=== PATIENT | female | born 1980 | race African-American/Black ===

== ENCOUNTER 2019-03-29 11:14 | Emergency (ER) | payer OTHER ==
[2019-03-29] MEDS ORDERED: ONDANSETRON 4 MG TAB.RAPDIS PO ONE (12:33)
--- NOTE | 2019-03-29 12:39 | ER Document Report ---
ED Medical Screen (RME) - General Chief Complaint: Nausea/Vomiting/Diarrhea Stated Complaint: VOMITING Time Seen by Provider: 03/29/19 12:17 Mode of Arrival: Ambulatory Information source: Patient Notes: HPI: 39 Yr old female patient, with the listed pmh, here for bilat lower abdominal pain intermittently for months, worse over the last 2 days. No abdominal surgeries other than 2 remote c-sections. a few episodes of vomiting. prior hx of miscarriage and ov cyst. also has vag dc and dyspareunia. No history of fibroids, endometriosis, or renal stones. Normal bowel movements. No UTI symptoms. No URI symptoms. No recent antibiotics or steroids. No history of diabetes or asthma. No concerns for STDs. No ripping or tearing sensation. Hasn't taken anything for her symptoms other than drinking lemon juice and vinegar juice as a "home remedy". No excessive NSAID use, Tylenol use, or EtOH. No prior history of gallbladder disease, pancreatitis, ulcers, GI bleed, IBS, Crohn's, or UC. no change in color or caliber or stool. no blood thinners. no fall or trauma. no other associated sx. ROS neg to include 10 systems, unless mentioned in the hpi. PE:>>>> PHYSICAL_EXAM: GENERAL_APPEARANCE: well_nourished, alert, cooperative, no_acute_distress, no_obvious_discomfort. pleasant, obese middle aged black female, smiling, speaking in full sentences, in no sign of pain or resp distress, VITALS: reviewed, see vital signs table. HEAD: no_swelling\\tenderness on the head. normocephalic. atraumatic. no august signs. no raccoons eyes. EYES: PERRL, EOMI, conjunctiva_clear. NOSE: no_nasal_discharge. MOUTH: (-)decreased moisture. THROAT: no_tonsilar_inflammation, no_airway_obstruction. no_lymphadenopathy NECK: supple, no_neck_tenderness, full rom. full strength. BACK: no_back_tenderness. CHEST_WALL: no_chest_tenderness. no overlying skin changes LUNGS: no_wheezing, ctab (-)accessory muscle use, good air exchange bilateral. HEART: normal_rate, normal_rhythm, ABDOMEN: normal_BS, soft, mild ttp in the LLQ and RLQ. > in the LLQ, (- )guarding, (-)rebound, no distension or peritoneal signs. no cva ttp EXTREMITIES: strength 5/5 in all_extremities, good pulses in all_extremities, no_swelling\\tenderness in the extremities, no_edema. full rom. normal gait. good pulses. brisk cap refill. 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 NEURO: motor and sensation intact, SKIN: warm, dry, good_color, no_rash. MENTAL_STATUS: speech_clear, oriented_X_3, normal_affect, responds_appropriately to questions. MDM: I have ordered labs and initial work-up and patient will be transferred to the main ER for further work-up. I have greeted and performed a rapid initial assessment of this patient. A comprehensive ED assessment and evaluation of the patient, analysis of test re sults and completion of medical decision making process will be conducted by an additional ED providers. Documentation achieved through voice recording which my lead to some occasional accidental typographical errors. Extensive efforts have been made to proof read documentation to make sure these are the least as possible Temp Pulse Resp BP Pulse Ox 03/29/19 11:37 98.6 F 69 18 122/72 100 Category Date Time Status Pelvic Setup (ED) NOW Care 03/29/19 12:31 Ordered TRANSVAGINAL [U/S NON OB PEL TV W/DOPPLER] [US] Stat Exams 03/29/19 12:32 Ordered CBC WITH DIFF [HEME] Stat Lab 03/29/19 12:23 Ordered [facility] PCR ENDO INHOUSE [MO] Stat Lab 03/29/19 12:32 Uncollected COMPREHENSIVE METABOLIC PANEL [CHEM] Stat Lab 03/29/19 12:23 Ordered HCG QUALITATIVE, URINE [URIN] Stat Lab 03/29/19 12:23 Uncollected LIPASE [CHEM] Stat Lab 03/29/19 12:23 Ordered URINALYSIS [URIN] Stat Lab 03/29/19 12:23 Uncollected WET MOUNT [MO] Stat Lab 03/29/19 12:32 Uncollected Ondansetron [Zofran Odt 4 mg Tablet] Med 03/29/19 12:33 Once 4 mg PO NOW ONE TRAVEL OUTSIDE OF THE [place] IN LAST 30 DAYS: No - Related Data Allergies/Adverse Reactions: latex Allergy (Verified 03/29/19 11:15) Past Medical History - Social History Frequency of alcohol use: None Drug Abuse: None Renal/ Medical History: Denies: Hx Peritoneal Dialysis Psychiatric Medical History: Reports: Hx Anxiety Past Surgical History: Reports: Hx Section - x2, Hx Oral Surgery - Immunizations Immunizations up to date: Yes Hx Diphtheria, Pertussis, Tetanus Vaccination: Yes Physical Exam - Vital signs Vitals: Temp Pulse Resp BP Pulse Ox 98.6 F 69 18 122/72 100 03/29/19 11:37 03/29/19 11:37 03/29/19 11:37 03/29/19 11:37 03/29/19 11:37 Course - Vital Signs Vital signs: Temp Pulse Resp BP Pulse Ox 98.6 F 69 18 122/72 100 03/29/19 11:37 03/29/19 11:37 03/29/19 11:37 03/29/19 11:37 03/29/19 11:37
[2019-03-29 13:16] LABS: ABSOLUTE EOSINOPHILS # (AUTO) 0.1 10^3/uL (0.0-0.6); ABSOLUTE MONOCYTES (AUTO) 0.4 10^3/uL (0.1-1.4); ABSOLUTE NEUT (AUTO) 2.5 10^3/uL (1.7-8.2); BASOPHILS % (AUTO) 0.7 % (0-2); EOSINOPHILS % (AUTO) 1.5 % (0-6); HEMATOCRIT 34.8 % (36.0-47.0); HEMOGLOBIN 11.1 g/dL (12.0-15.5); LYMPHOCYTES % (AUTO) 40.5 % (13-45); MEAN CORPUSCULAR HEMOGLOBIN 25.1 pg (27.0-33.4); MEAN CORPUSCULAR HGB CONC 31.8 g/dL (32.0-36.0); MEAN CORPUSCULAR VOLUME 79 fl (80-97); MONOCYTES % (AUTO) 8.1 % (3-13); PLATELET COUNT 236 10^3/uL (150-450); RED CELL DISTRIBUTION WIDTH 17.3 % (11.5-14.0); SEGMENTED NEUTROPHILS % (AUTO) 49.2 % (42-78); TOTAL CELLS COUNTED % (AUTO) 100 %
[2019-03-29 13:19] LABS: APPEARANCE,URINE CLEAR; BILIRUBIN,URINE NEGATIVE (NEGATIVE); COLOR,URINE COLORLESS; GLUCOSE, URINE NEGATIVE (NEGATIVE); KETONES,URINE NEGATIVE (NEGATIVE); LEUKOCYTE ESTERASE,URINE NEGATIVE (NEGATIVE); NITRITE,URINE NEGATIVE (NEGATIVE); PROTEIN,URINE NEGATIVE (NEGATIVE); URINE SPECIFIC GRAVITY 1.001; UROBILINOGEN,URINE NEGATIVE mg/dL (<2.0)
[2019-03-29 13:35] LABS: ALBUMIN 4.6 g/dL (3.5-5.0); ALKALINE PHOSPHATASE 66 U/L (38-126); ANION GAP 10 (5-19); ASPARTATE AMINO TRANSFERASE 22 U/L (14-36); BILIRUBIN,DIRECT 0.2 mg/dL (0.0-0.4); BILIRUBIN,TOTAL 0.3 mg/dL (0.2-1.3); BLOOD UREA NITROGEN 9 mg/dL (7-20); CALCIUM 9.2 mg/dL (8.4-10.2); CARBON DIOXIDE 26 mmol/L (22-30); CHLORIDE 104 mmol/L (98-107); GLUCOSE 89 mg/dL (75-110); POTASSIUM 4.1 mmol/L (3.6-5.0); TOTAL PROTEIN 8.2 g/dL (6.3-8.2)
--- NOTE | 2019-03-29 14:37 | RADIOLOGY REPORT (SQ) ---
EXAM DESCRIPTION: U/S NON OB PEL TV W/DOPPLER COMPLETED DATE/TIME: 03/29/2019 1:27 pm REASON FOR STUDY: llq and rlq abd pain/ r/o cyst/torsion COMPARISON: None. TECHNIQUE: Dynamic and static grayscale images acquired of the pelvis via transvaginal approach and recorded on PACS. Additional selected color Doppler and spectral images recorded. LIMITATIONS: None. FINDINGS: UTERUS: Contour normal. No mass. ENDOMETRIAL STRIPE: No focal or generalized thickening. No masses. CERVIX: No nabothian cysts. RIGHT OVARY AND DOPPLER: Normal size. No worrisome masses. Normal arterial vascular flow without evid ence for torsion. LEFT OVARY AND DOPPLER: Ovary not visualized. FREE FLUID: None noted. OTHER: No other significant finding. MEASUREMENTS: UTERUS: 11.0 x 6.4 x 5.5 cm. ENDOMETRIAL STRIPE: 11.0 mm. RIGHT OVARY: 2.8 x 2.6 x 2.8 cm. LEFT OVARY: Not visualized. IMPRESSION: Nonvisualization of the left ovary. The right ovary is normal in appearance. TECHNICAL DOCUMENTATION: JOB ID: [id number] All Rights Reserved Rev-01/01 Reading location - IP/workstation name: [email or web address]
--- NOTE | 2019-03-29 15:31 | ER Document Report ---
ED GI/ - General Chief Complaint: Nausea/Vomiting/Diarrhea Stated Complaint: VOMITING Time Seen by Provider: 03/29/19 12:17 Primary Care Provider: [facility] [Primary Care Provider] - Follow up as needed Mode of Arrival: Ambulatory Information source: Patient Notes: 39-year-old female presented to ED for complaint of bilateral lower abdominal pain nausea and vomiting with no diarrhea. She states she has been having this pain intermittently for at least a couple months and is been worse for the last couple days. She states she has had 2 C-sections with a history history of fibroid uterus endometriosis and renal stones. She states she does not have any urinary symptoms. Patient was alert oriented respirations regular and unlabored speaking in full sentences. TRAVEL OUTSIDE OF THE [place] IN LAST 30 DAYS: No - HPI Patient complains to provider of: Abdominal pain, Vomiting Onset: Other - Couple months worse last couple days Timing/Duration: Persistent Quality of pain: Cramping, Sharp Severity at maximum: Moderate Severity in ED: Mild Pain Level: 2 Location: LLQ, RLQ, Suprapubic, Pelvis Vaginal bleeding (Compared to normal period): None Associated symptoms: Nausea, Vomiting Exacerbated by: Movement, Walking Relieved by: Denies Similar symptoms previously: Yes Recently seen / treated by doctor: No - Related Data Allergies/Adverse Reactions: latex Allergy (Verified 03/29/19 11:15) Past Medical History - General Information source: Patient - Social History Smoking Status: Never Smoker Frequency of alcohol use: None Drug Abuse: None 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 Lives with: Family Family History: Reviewed & Not Pertinent Patient has suicidal ideation: No Patient has homicidal ideation: No - Past Medical History Cardiac Medical History: Reports: None Pulmonary Medical History: Reports: None EENT Medical History: Reports: None Neurological Medical History: Reports: None Endocrine Medical History: Reports: None Renal/ Medical History: Reports: Other - Uterine fibroids endometriosis Malignancy Medical History: Reports: None GI Medical History: Reports: None Musculoskeletal Medical History: Reports None Skin Medical History: Reports None Psychiatric Medical History: Reports: Hx Anxiety Traumatic Medical History: Reports: None Infectious Medical History: Reports: None Past Surgical History: Reports: Hx Section - x2, Hx Oral Surgery - Immunizations Immunizations up to date: Yes Hx Diphtheria, Pertussis, Tetanus Vaccination: Yes Review of Systems - Review of Systems Constitutional: No symptoms reported EENT: No symptoms reported Cardiovascular: No symptoms reported Respiratory: No symptoms reported Gastrointestinal: Abdominal pain, Nausea, Vomiting Female Genitourinary: Vaginal discharge, Vaginal odor, Other - Pelvic pain Musculoskeletal: No symptoms reported Skin: No symptoms reported Hematologic/Lymphatic: No symptoms reported Neurological/Psychological: No symptoms reported -: Yes All other systems reviewed and negative Physical Exam - Vital signs Vitals: Temp Pulse Resp BP Pulse Ox 98.6 F 69 18 122/72 100 03/29/19 11:37 03/29/19 11:37 03/29/19 11:37 03/29/19 11:37 03/29/19 11:37 Interpretation: Normal - General General appearance: Appears well, Alert - HEENT Head: Normocephalic, Atraumatic Eyes: Normal Pupils: PERRL - Respiratory Respiratory status: No respiratory distress Chest status: Nontender Breath sounds: Normal Chest palpation: Normal - Cardiovascular Rhythm: Regular Heart sounds: Normal auscultation Murmur: No - Abdominal Inspection: Normal Distension: No distension Bowel sounds: Normal Tenderness: Tender Organomegaly: No organomegaly - Genitourinary External exam: Normal Speculum exam: Vaginal discharge Vaginal bleeding: None Bimanuel exam: Normal - Back Back: Normal, Nontender - Extremities General upper extremity: Normal inspection, Nontender, Normal color, Normal ROM, Normal temperature General lower extremity: Normal inspection, Nontender, Normal color, Normal ROM, Normal temperature, Normal weight bearing. No: Brigitte's sign - Neurological Neuro grossly intact: Yes Cognition: Normal Orientation: AAOx4 [place] Coma Scale Eye Opening: Spontaneous Ean Coma Scale Verbal: Oriented [place] Coma Scale Motor: Obeys Commands [place] Coma Scale Total: 15 Speech: Normal Motor strength normal: LUE, RUE, LLE, RLE Sensory: Normal - Psychological Associated symptoms: Normal affect, Normal mood - Skin Skin Temperature: Warm Skin Moisture: Dry Skin Color: Normal Course - Re-evaluation Re-evalutation: 03/30/19 02:22 Labs and ultrasound were discussed with patient and written reports of labs and ultrasound given to patient before discharge. She was instructed to follow-up with her primary care doctor. She was treated with Flagyl for bacterial vaginosis and given a prescription for Flagyl. She was instructed to call the emergency room for results of her GC and chlamydia. These were negative. - Vital Signs Vital signs: Temp Pulse Resp BP Pulse Ox 98.1 F 77 18 117/72 100 03/29/19 16:16 03/29/19 16:16 03/29/19 11:37 03/29/19 16:16 03/29/19 16:16 - Laboratory Result Diagrams: 03/29/19 12:45 03/29/19 12:45 Laboratory results interpreted by me: 03/29/19 12:45 Hgb 11.1 L Hct 34.8 L MCV 79 L MCH 25.1 L MCHC 31.8 L RDW 17.3 H - Diagnostic Test Radiology reviewed: Image reviewed, Reports reviewed Discharge - Discharge Clinical Impression: Bacterial vaginal infection, Nausea vomiting and diarrhea Condition: Stable Disposition: HOME, SELF-CARE Additional Instructions: VAGINOSIS, BACTERIAL: Your exam shows you have bacterial vaginosis. This condition is due to an overgrowth of bacteria in the vagina. Symptoms may include vaginal itching or pain, a smelly discharge, and sometimes burning with urination. Normally this is not transmitted by sexual contact. Vaginosis can be treated with oral or topical antibiotics. Metronidazole (Flagyl) pills are usually effective. Topical vaginal creams include Cleocin and Metro-Gel. You should avoid sexual contact until your symptoms are all better. Call the doctor if you develop pelvic pain, fever, or problems with urination, or if you don't improve as expected. VOMITING: Vomiting (or nausea without vomiting) can be caused by many other different problems. It can mean that something's wrong with the stomach, such as ulcers or inflammation or the intestinal tract, such as appendicitis. But it can also be a symptom of a problem that has nothing to do with the stomach or intestines. Vomiting is common with severe headaches, earaches, tonsillitis, and kidney infections, etc. We see it with pneumonia or heart attacks. Drugs can cause nausea and vomiting. Many abdominal problems cause vomiting; for example, gallstones, kidney stones, pancreatitis, and intestinal obstruction (blocked bowels). In most cases, curing the vomiting depends on fixing the problem that caused it. For temporary relief, we may use an anti-nausea medicine. For home use, we can prescribe suppositories, chewable pills, pills that dissolve in the mouth, or liquid anti-nausea drugs. If the vomiting seems to be caused by a problem in the stomach, acid-suppressing drugs may be prescribed as well. It's important to avoid dehydration. Sip small amounts of clear liquids (soft drinks, tea, broth, etc) . Try to take fluids frequently even if you are vomiting to prevent dehydration. Take increasing amounts of fluid and when liquids are being consumed successfully, advance to small amounts of bland food (toast, soups, mashed potatoes, etc.) until you are able to resume a regular diet. Avoid aspirin, tobacco, and alcohol. If the vomiting worsens, if the problem that's making you vomit worsens, or if there's evidence of bleeding in the stomach (such as black, tarry stool, or bloody or black vomit), you should return immediately. Also, return if abdominal pain worsens or becomes localized to one area or you develop high fever. Call your doctor if you aren't improved in 24 hours. DIARRHEA, NON-SPECIFIC: Diarrhea means frequent, watery stools. There are many causes. Any problem that keeps the intestinal tract from absorbing water from the stool can lead to diarrhea. A sudden new diarrhea problem is usually caused by a virus, food sensitivity, toxic bacteria, or drugs. In this case, we expect the problem to go away soon. Testing is done only if you seem seriously ill from the diarrhea. If you have chronic diarrhea, or diarrhea that keeps coming back, we need to find out why. Chronic diarrhea can be due to inflammation of the bowels such as Crohn's disease or ulcerative colitis, food sensitivity such as intolerance to lactose or wheat protein, irritable bowel syndrome, and other problems. If your diarrhea is a significant problem but it's not clear why you have it, we'll refer you to a specialist for further testing. During an episode of diarrhea, drink small amounts (two to six ounces) of clear liquids (soft drinks, sport drinks, herb teas, broth, etc). Take fluids frequently to prevent dehydration. It's usually not a problem to take mild anti- diarrhea medication such as Kaopectate or Pepto-Bismol. As the diarrhea eases, advance to small amounts of bland food (mashed potato, toast) for 24 hours. Call the physician if blood appears in your vomit or stool, if vomiting lasts longer than 24 hours, if the abdominal pain worsens or becomes localized to one area, if you develop high fever, or if you become lightheaded and weak. VIRAL SYNDROME: The physician has diagnosed a viral infection. Viruses not only cause "colds," but can cause many different symptoms including generalized aching, fever, headache, cough, diarrhea, nausea, vomiting, and fatigue. The treatment, for the most part, is simply relief of symptoms. This means that antibiotics are usually not given. Rest, fluids, pain medications and, occasionally, medication for the specific symptoms that are most bothersome will be prescribed. Use good handwashing to avoid passing the virus to others. Shared toys should be cleaned with disinfectant. Clean the toilets, sinks, and counter surfaces in bathrooms. Launder clothing in hot water. Contact the physician if you develop any new or unusual symptoms such as severe headache, stiff neck, high fever, chest pain, productive cough, or shortness of breath. You should be rechecked if you don't see marked improvement within seven to 10 days. ANTINAUSEA MEDICATION: You have been given a medication to suppress nausea and vomiting. This type of medication can be given as a shot, pill, or suppository. It will usually last for many hours. Pills and shots usually last six to eight hours. For the typical illness, only one or two doses of the medication may be necessary. Mild lightheadedness may occur. This type of medicine can cause drowsiness. Do not drive or operate dangerous machinery while under its influence. Do not mix with alcohol. See your doctor at once if you have muscle spasms or tightness, or uncontrollable motions (particularly of the neck, mouth, or jaw). Persistent vomiting or severe lightheadedness should also be evaluated by the physician. METRONIDAZOLE: Metronidazole (Flagyl) has been prescribed. This medication is used to kill a type of bacteria called anaerobes, and protozoan parasites such as trichomonas and Giardia. Flagyl often causes a metallic taste in the mouth and mild nausea. Do not use alcohol in any form with Flagyl (including alcohol in medication elixirs). Flagyl interacts with alcohol to cause flushing, palpitations, headache, stomach cramps, and vomiting. Do not use Flagyl if you are taking Antabuse (disulfiram). Call the doctor at once if you develop rash, shortness of breath, itching, or lightheadedness. FOLLOW-UP CARE: If you have been referred to a physician for follow-up care, call the physicians office for an appointment as you were instructed or within the next two days. If you experience worsening or a significant change in your symptoms, notify the physician immediately or return to the Emergency Department at any time for re-evaluation. Prescriptions: Metronidazole [Flagyl 500 mg Tablet] 500 mg PO BID #14 tablet Ondansetron [Zofran Odt 4 mg Tablet] 1 tab PO Q6H #15 tab.rapdis Referrals: [facility] [Primary Care Provider] - Follow up as needed
[2019-03-29 15:51] LABS: BACTERIA (WET MOUNT) 3+ BACTERIA SEEN; EPITHELIALS (WET MOUNT) 3+ EPITHELIALS SEEN; T.VAGINALIS (WET MOUNT) NO TRICHOMONAS SEEN; WBCS (WET MOUNT) RARE WBCS SEEN; YEAST (WET MOUNT) NO YEAST SEEN
[2019-03-29] MEDS ORDERED: METRONIDAZOLE 500 MG TABLET PO ONE (16:11)
[2019-03-29 16:23] VITALS: BP 117/72
[2019-03-29 17:18] LABS: CHLAM PCR NOT DETECTED (NOT DETECT)
== END 2019-03-29 16:23 | disposition home or self-care (01) ==
LOC: ER 11:14
DX: N76.0 Acute vaginitis (principal); B96.89 Other specified bacterial agents as the cause of diseases classified elsewhere; R11.2 Nausea with vomiting, unspecified; R10.31 Right lower quadrant pain; R10.32 Left lower quadrant pain; R10.2 Pelvic and perineal pain; Z87.442 Personal history of urinary calculi; Z87.42 Personal history of other diseases of the female genital tract; Z91.040 Latex allergy status
CPT/HCPCS: 99284; 36415; 87210; 83690; 85025; 81025; 80053; 81001; 87491; 87591; 76830; 93976; S0119

== ENCOUNTER 2019-08-23 22:15 | Emergency (ER) | payer OTHER ==
[2019-08-23 23:18] LABS: APPEARANCE,URINE CLEAR; BILIRUBIN,URINE NEGATIVE (NEGATIVE); COLOR,URINE STRAW; GLUCOSE, URINE NEGATIVE (NEGATIVE); KETONES,URINE NEGATIVE (NEGATIVE); LEUKOCYTE ESTERASE,URINE NEGATIVE (NEGATIVE); NITRITE,URINE NEGATIVE (NEGATIVE); PROTEIN,URINE NEGATIVE (NEGATIVE); URINE SPECIFIC GRAVITY 1.009; UROBILINOGEN,URINE NEGATIVE mg/dL (<2.0)
--- NOTE | 2019-08-24 00:39 | ER Document Report ---
ED GI/ - General Chief Complaint: Vaginal Bleeding Stated Complaint: CRAMPS/VAGINAL BLEEDING Time Seen by Provider: 08/24/19 00:20 Primary Care Provider: NEMO VELAZQUEZ [Primary Care Provider] - Follow up as needed Notes: Patient is a 39-year-old female that comes emergency department for chief complaint of positive home test, left lower abdominal cramping, vaginal spotting for the past 2 days. She is G4, P2 at uncertain gestation with last menstrual cycle around a month or so ago. She denies current pain, heavy bleeding, dizziness, fever, vomiting, dysuria, vaginal discharge. She denies any daily medications currently, she stopped these when she found out she was , normally on anxiety/depression medications. TRAVEL OUTSIDE OF THE [place] IN LAST 30 DAYS: No - Related Data Allergies/Adverse Reactions: latex Allergy (Verified 03/29/19 11:15) Past Medical History - General Information source: Patient - Social History Smoking Status: Never Smoker Frequency of alcohol use: None Drug Abuse: None Lives with: Family Family History: Reviewed & Not Pertinent Patient has suicidal ideation: No Patient has homicidal ideation: No Renal/ Medical History: Denies: Hx Peritoneal Dialysis Psychiatric Medical History: Reports: Hx Anxiety Past Surgical History: Reports: Hx Section - x2, Hx Oral Surgery - Immunizations Immunizations up to date: Yes Hx Diphtheria, Pertussis, Tetanus Vaccination: Yes Review of Systems - Review of Systems Constitutional: No symptoms reported EENT: No symptoms reported Cardiovascular: No symptoms reported Respiratory: No symptoms reported Gastrointestinal: No symptoms reported Genitourinary: See HPI Female Genitourinary: See HPI Musculoskeletal: No symptoms reported Skin: No symptoms reported Hematologic/Lymphatic: No symptoms reported Neurological/Psychological: No symptoms reported Physical Exam - Vital signs Vitals: Temp Pulse Resp BP Pulse Ox 98.2 F 93 16 140/64 H 100 08/23/19 22:19 08/23/19 22:19 08/23/19 22:19 08/23/19 22:19 08/23/19 22:19 - Notes Notes: GENERAL: Alert, interacts well. No acute distress. HEAD: Normocephalic, atraumatic. EYES: Pupils equal, round, and reactive to light. Extraocular movements intact. ENT: Oral mucosa moist, tongue midline. Oropharynx unremarkable. Airway patent. LUNGS: Clear to auscultation bilaterally, no wheezes, rales, or rhonchi. No respiratory distress. HEART: Regular rate and rhythm. No murmur ABDOMEN: Minimal tenderness in the left lower quadrant, no guarding, almost not even reproducible. Bowel sounds present. Abdomen completely nontender otherwise. GENITOURINARY: Deferred EXTREMITIES: Moves all 4 extremities spontaneously. No edema, normal radial and dorsalis pedis pulses bilaterally. No cyanosis. BACK: no cervical, thoracic, lumbar midline tenderness. No saddle anesthesia, normal distal neurovascular exam. Moves all extremities in full range of motion. NEUROLOGICAL: Alert and oriented x3. Normal speech. Cranial nerves II through XII grossly intact. PSYCH: Normal affect, normal mood. SKIN: Warm, dry, normal turgor. No rashes or lesions noted. Course - Re-evaluation Re-evalutation: Patient with soft benign abdomen except for very mild left lower abdominal tenderness. No guarding. Unremarkable vital signs. Remaining physical exam is unremarkable. CBC and urinalysis unremarkable. hCG elevated appropriately. RhoGam is not indicated. Ultrasound shows living intrauterine , I had to call and ask about the heartbeat and they provided me with the information. No acute findings are noted. On reevaluation patient is asymptomatic. Discussed findings with patient. Provided with copy of results, patient states that she has a close appointment for follow-up with [facility] are established. Discussed return precautions. Patient and significant other state appreciation and agreement. - Vital Signs Vital signs: Temp Pulse Resp BP Pulse Ox 98.0 F 77 18 126/68 H 99 08/24/19 02:57 08/24/19 02:57 08/24/19 02:57 08/24/19 02:57 08/24/19 02:57 - Laboratory Result Diagrams: 08/24/19 01:22 Laboratory results interpreted by me: 08/23/19 08/24/19 08/24/19 22:59 01:22 01:22 Hgb 11.0 L Hct 34.2 L MCH 25.8 L RDW 19.5 H Beta HCG, Quant 07979.00 H Urine Blood MODERATE H Discharge - Discharge Clinical Impression: Vaginal bleeding affecting early , Abdominal cramping affecting Condition: Stable Disposition: HOME, SELF-CARE Additional Instructions: There is a in the uterus seen at 7 weeks and 2 days with cardiac rate of 163. No concerning findings are seen. Your work-up is not showing any concerning findings at this time. I recommend pelvic rest, avoid intense exercise, lifting, sexual intercourse, etc. for the next several days and until cleared by [facility]. Follow-up close with [facility]. Take Tylenol if needed for pain. Return for any concerning symptoms including severe pain, heavy bleeding, dizziness, passing out, fever, or any other concerning symptoms. Forms: Return to Work Referrals: [facility] [Primary Care Provider] - Follow up as needed
--- NOTE | 2019-08-24 01:31 | RADIOLOGY REPORT (SQ) ---
EXAM DESCRIPTION: [facility]: US TRANSVAGINAL CLINICAL HISTORY: 39 years Female; left pelvic pain, bleeding, +HCG TECHNIQUE: Endovaginal pelvic ultrasound was performed. COMPARISON: 03/29/2019 FINDINGS: Uterus: 10.2 x 6.6 x 6.2 cm. Single intrauterine gestational sacs identified Yolk sac 4 mm pole is identified, EGA 7 weeks 2 days No adjacent hematoma Right ovary: Not visualized. Left ovary: Not visualized. Cervix 2.9 cm, closed. There is a small amount of fluid in the cul-de-sac. IMPRESSION: 1. Single viable IUP, EGA 7 weeks 2 days, SHERRI 04/09/2020 2. No acute findings 3. Ovaries not visualized
[2019-08-24 01:33] LABS: ABSOLUTE EOSINOPHILS # (AUTO) 0.1 10^3/uL (0.0-0.6); ABSOLUTE LYMPHOCYTES (AUTO) 2.2 10^3/uL (0.5-4.7); ABSOLUTE MONOCYTES (AUTO) 0.5 10^3/uL (0.1-1.4); ABSOLUTE NEUT (AUTO) 3.4 10^3/uL (1.7-8.2); BASOPHILS % (AUTO) 0.4 % (0-2); EOSINOPHILS % (AUTO) 1.2 % (0-6); HEMATOCRIT 34.2 % (36.0-47.0); LYMPHOCYTES % (AUTO) 35.5 % (13-45); MEAN CORPUSCULAR HEMOGLOBIN 25.8 pg (27.0-33.4); MEAN CORPUSCULAR HGB CONC 32.3 g/dL (32.0-36.0); MEAN CORPUSCULAR VOLUME 80 fl (80-97); MONOCYTES % (AUTO) 8.7 % (3-13); PLATELET COUNT 233 10^3/uL (150-450); RED BLOOD COUNT 4.28 10^6/uL (3.72-5.28); RED CELL DISTRIBUTION WIDTH 19.5 % (11.5-14.0); SEGMENTED NEUTROPHILS % (AUTO) 54.2 % (42-78); TOTAL CELLS COUNTED % (AUTO) 100 %; WHITE BLOOD COUNT 6.2 10^3/uL (4.0-10.5)
[2019-08-24 02:59] VITALS: BP 126/68
== END 2019-08-24 02:59 | disposition home or self-care (01) ==
LOC: ER 22:15
DX: O20.9 Hemorrhage in early pregnancy, unspecified (principal); O26.899 Other specified pregnancy related conditions, unspecified trimester; R10.30 Lower abdominal pain, unspecified; R10.814 Left lower quadrant abdominal tenderness; Z3A.00 Weeks of gestation of pregnancy not specified; Z91.040 Latex allergy status
CPT/HCPCS: 36415; 76817; 81001; 84702; 85025; 86900; 86901; 93976; 99284

== ENCOUNTER 2020-04-05 12:46 | Outpatient (CLI) | payer OTHER ==
[2020-04-05 13:38] LABS: APPEARANCE,URINE SLIGHTLY-CLOUDY; BILIRUBIN,URINE NEGATIVE (NEGATIVE); COLOR,URINE STRAW; GLUCOSE, URINE NEGATIVE (NEGATIVE); KETONES,URINE TRACE mg/dL (NEGATIVE); LEUKOCYTE ESTERASE,URINE NEGATIVE (NEGATIVE); NITRITE,URINE NEGATIVE (NEGATIVE); PROTEIN,URINE NEGATIVE (NEGATIVE); URINE SPECIFIC GRAVITY 1.005; UROBILINOGEN,URINE NEGATIVE mg/dL (<2.0)
[2020-04-05 13:59] LABS: URINE AMPHETAMINES SCREEN NEGATIVE; URINE BARBITURATES SCREEN NEGATIVE; URINE BENZODIAZEPINES SCREEN NEGATIVE; URINE COCAINE SCREEN NEGATIVE; URINE MARIJUANA (THC) SCREEN NEGATIVE; URINE METHADONE SCREEN NEGATIVE; URINE PHENCYCLIDINE SCREEN NEGATIVE
--- NOTE | 2020-04-05 14:32 | Non Stress Test Report ---
Non Stress Test Datetime Report Generated by CPN: 04/05/2020 14:31 DEMOGRAPHIC EGA NST: 39.2 INDICATION Indication for Study (NST) Other: IUP at 39.2; False labor VITAL SIGNS Temperature - NST: 97.6 Pulse - NST: 82 RESP - NST: 20 NBPSYS NST: 104 NBPDIA NST: 54 MONITORING Monitor Explained: Monitor Explained; Test Explained; Patient Verbalized Understanding Time on Monitor: 04/05/2020 12:56 Time off Monitor: 04/05/2020 13:43 NST Duration: 47 NST INTERVENTIONS NST Interventions: PO Hydration Physician Notified NST: P. Eddy, CNM BABY A: [id number] BABY A Movement : Present Contraction Frequency : Irreg FHR Baseline : 125 Accelerations : 15X15 Decelerations : None Variability : Moderate 6-25bpm NST Review: Meets Criteria for Reactive NST NST Review and Verified By : Meme Mcbride RNC NST Results: Reactive NST REPORT Report Trigger: Send Report
== END 2020-04-05 13:59 | disposition home or self-care (01) ==
LOC: LC 12:46
PROVIDERS: ATTEND Obstetrics & Gynecology Gynecology
DX: O47.1 False labor at or after 37 completed weeks of gestation (principal); Z3A.39 39 weeks gestation of pregnancy
CPT/HCPCS: 59025; 80307; 81005

== ENCOUNTER 2020-04-08 21:45 | Inpatient (IN) | payer OTHER ==
[2020-04-05 14:57] LABS: ABSOLUTE EOSINOPHILS # (AUTO) 0.1 10^3/uL (0.0-0.6); ABSOLUTE LYMPHOCYTES (AUTO) 1.4 10^3/uL (0.5-4.7); ABSOLUTE MONOCYTES (AUTO) 0.5 10^3/uL (0.1-1.4); ABSOLUTE NEUT (AUTO) 4.5 10^3/uL (1.7-8.2); BASOPHILS % (AUTO) 0.5 % (0-2); EOSINOPHILS % (AUTO) 0.8 % (0-6); HEMOGLOBIN 11.4 g/dL (12.0-15.5); LYMPHOCYTES % (AUTO) 21.5 % (13-45); MEAN CORPUSCULAR HEMOGLOBIN 29.1 pg (27.0-33.4); MEAN CORPUSCULAR HGB CONC 33.7 g/dL (32.0-36.0); MEAN CORPUSCULAR VOLUME 86 fl (80-97); MONOCYTES % (AUTO) 7.7 % (3-13); PLATELET COUNT 178 10^3/uL (150-450); RED BLOOD COUNT 3.93 10^6/uL (3.72-5.28); RED CELL DISTRIBUTION WIDTH 14.2 % (11.5-14.0); SEGMENTED NEUTROPHILS % (AUTO) 69.5 % (42-78); TOTAL CELLS COUNTED % (AUTO) 100 %; WHITE BLOOD COUNT 6.4 10^3/uL (4.0-10.5)
[2020-04-08 22:32] LABS: ABSOLUTE EOSINOPHILS # (AUTO) 0.1 10^3/uL (0.0-0.6); ABSOLUTE LYMPHOCYTES (AUTO) 1.5 10^3/uL (0.5-4.7); ABSOLUTE MONOCYTES (AUTO) 0.8 10^3/uL (0.1-1.4); ABSOLUTE NEUT (AUTO) 5.1 10^3/uL (1.7-8.2); BASOPHILS % (AUTO) 0.1 % (0-2); EOSINOPHILS % (AUTO) 1.5 % (0-6); HEMATOCRIT 34.1 % (36.0-47.0); HEMOGLOBIN 11.2 g/dL (12.0-15.5); LYMPHOCYTES % (AUTO) 19.8 % (13-45); MEAN CORPUSCULAR HEMOGLOBIN 28.4 pg (27.0-33.4); MEAN CORPUSCULAR HGB CONC 32.8 g/dL (32.0-36.0); MEAN CORPUSCULAR VOLUME 87 fl (80-97); MONOCYTES % (AUTO) 10.9 % (3-13); PLATELET COUNT 187 10^3/uL (150-450); RED BLOOD COUNT 3.95 10^6/uL (3.72-5.28); RED CELL DISTRIBUTION WIDTH 14.4 % (11.5-14.0); SEGMENTED NEUTROPHILS % (AUTO) 67.7 % (42-78); TOTAL CELLS COUNTED % (AUTO) 100 %; WHITE BLOOD COUNT 7.6 10^3/uL (4.0-10.5)
[2020-04-08] MEDS ORDERED: FENTANYL CITRATE INJ/PF 100 MCG/2 ML AMPUL ONE (22:55)
[2020-04-08] MEDS ORDERED: ACETAMINOPHEN 1,000 MG/100 ML RTUPB IV ONE (22:55)
[2020-04-08] MEDS ORDERED: KETOROLAC TROMETHAMINE INJ/PF 30 MG/1 ML SDV ONE (22:55)
[2020-04-08] MEDS ORDERED: ONDANSETRON HCL INJ/PF 4 MG/2 ML SDV ONE (22:55)
[2020-04-08] MEDS ORDERED: OXYTOCIN/0.9 % SODIUM CHLORIDE 30 UNIT/500 ML RTUINJ ONE (22:55)
[2020-04-08] MEDS ORDERED: OXYTOCIN 10 UNIT/ML VIAL ONE (22:55)
[2020-04-09] MEDS ORDERED: MISOPROSTOL 0.2 MG TABLET ONE (00:20)
--- NOTE | 2020-04-09 00:44 | Admission Physical ---
Datetime Report Generated by CPN: 04/09/2020 00:44 CURRENT ADMISSION Chief Complaint: Uterine Contractions; Suspected Ruptured Membranes Chief Complaint Other: previous c/section Indication for Induction: Not Applicable Admit Impression : Term, Intrauterine ; Repeat Section Admit Plan: Admit to Unit; Initiate Section Protocol ALLERGIES Medication Allergies: No Medication Allergies: latex (04/05/2020) Latex: Latex Allergies OBSTETRICAL HISTORY EDC: 04/10/2020 00:00 : 4 Para: 2 Term: 1 : 1 SAB: 1 Livin Gestational Diabetes: No Rh Sensitization: No Incompetent Cervix: No JOSEPH: No Infertility: No ART Treatment: No Uterine Anomaly: No IUGR: No Hx Previous C/S: Yes Macrosomia: No Hx Loss/Stillborn: No PIH: Yes Hx : No Placenta Previa/Abruption: No Depression/PP Depression: Yes PTL/PROM: No Post Hemorrhage: No Current Procedures: Ultrasound; NST Obstetrical History Comments: G1: 2001, c/s, female @ 40.5, 7# 5oz G2: 2006, c/s, male @ 28 weeks (toxemia), 1# 2 oz G3: 2012, SAB G5: current; AMA SEE RECORDS Alcohol: No Marijuana : No Cocaine: No Other Illicit Drugs: No Cigarettes: Never Smoker. 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 Surgery: No Heart Disease: No Hosp/Surgery: Yes Autoimmune Disorder: No Anesthetic Complications: No Kidney Disease: No Abnormal Pap Smear: No Neuro/Epilepsy: No Psychiatric Disorders: Yes Other Medical Diseases: No Hepatitis/Liver Disease: No Significant Family History: No Varicosities/Phlebitis: No Trauma/Violence : No Thyroid Dysfunction: No Medical History Comments: anxiety (takes zitalopram) INFECTIOUS HISTORY Gonorrhea: No Genital Herpes: No Chlamydia: No Tuberculosis: No Syphilis: No Hepatitis: No HIV/AIDS Exposure: No Rash or Viral Illness: No HPV: No PHYSICAL EXAM General: Normal HEENT: Normal Neurologic: Normal Thyroid: Normal Heart: Normal Lungs: Normal Breast: Normal Back: Normal Abdomen: Normal Genitourinary Exam: Normal Extremities: Normal DTRs: Normal Pelvic Type: Adequate Vital Signs: Reviewed; Within Normal Limits MEMBRANES Pooling: Positive Membranes: Ruptured Amniotic Fluid Color: Meconium, Heavy FETUS A EGA: 39.6 Monitoring: External US FHR- Baseline: 130 Variability: Moderate 6-25bpm Accelerations: 10X10 Decelerations: None FHR Category: Category II Estimated Weight (gm): 4500 Presentation: Vertex PLANS FOR LABOR AND DELIVERY Labor and Delivery: None Pain Management: Spinal Feeding Preference: Breast Benefit of Breast Feed Discussed: Yes Circumcision: N/A INFORMED CONSENT Signature: with User ID: [email or web address]
[2020-04-09] MEDS ORDERED: MORPHINE SULFATE 10 MG/ML INJ IV PRN (00:51)
[2020-04-09] MEDS ORDERED: ACETAMINOPHEN 1 GM/100 ML RTUPB IV PRN (00:51)
[2020-04-09] MEDS ORDERED: MEASLES,MUMPS&RUBELLA VACC/PF 0.5 ML VIAL SUBCUT PRN (00:51)
[2020-04-09] MEDS ORDERED: OXYCODONE-ACETAMINOPHEN 5-325 MG TABLET PO PRN ×2 (00:51)
[2020-04-09] MEDS ORDERED: ACETAMINOPHEN 325 MG TABLET PO PRN (00:51)
[2020-04-09] MEDS ORDERED: PROMETHAZINE HCL INJ 25 MG/1 ML VIAL IV PRN (00:51)
[2020-04-09] MEDS ORDERED: OXYTOCIN/0.9 % SODIUM CHLORIDE 30 UNIT/500 ML RTUINJ IV PRN (00:51)
[2020-04-09] MEDS ORDERED: DIPH/PERTUSS(ACELL)/TETANUS VAC/PF 0.5 ML SYR (>=10YO) IM PRN (00:51)
[2020-04-09] MEDS ORDERED: MEPERIDINE HCL/PF INJ 25 MG/1 ML DISP.SYRIN ONE (00:55)
--- NOTE | 2020-04-09 00:58 | Operative Report ---
Operative Report DATE OF SURGERY: 04/09/20 PREOPERATIVE DIAGNOSIS: IUP at 39 weeks and 6 days previous , spontane ous rupture of membranes POSTOPERATIVE DIAGNOSIS: Same OPERATION: Repeat low transverse hysterotomy section SURGEON: CONOR MAHARAJ ANESTHESIA: Spinal COMPLICATIONS: None ESTIMATED BLOOD LOSS: 1000 cc INTRAOPERATIVE FINDINGS: Female infant cephalic presentation Apgars of 8 and 9 thick meconium PROCEDURE: PROCEDURE IN DETAIL: The patient was taken to the operating room, prepared and draped in a normal sterile fashion in a supine position with a leftward tilt. A transverse skin incision was made with a scalpel and carried through to the underlying layer of fascia with the same scalpel. The fascia was excised in the midline and extended laterally with Stefany. The fascia was then dissected from the rectus muscle sharply with Stefany and the rectus muscle was divided and the peritoneal cavity was entered sharply with the same Metzenbaum. With good visualization of the bladder and the uterus the bladder blade was inserted. The hysterotomy was nicked with a scalpel and extended laterally with surgeon finger fraction. The was then delivered atraumatically. The nose and mouth were suctioned with a suction bulb, the cord was clamped and cut and handed off to awaiting pediatricians. Cord blood was collected. The placenta was removed manually. The uterus was exteriorized and cleared of clots and debris. The hysterotomy was closed with 0 Monocryl in a running, locked fashion. A second layer of the same suture was used to imbricate to ensure hemostasis. The uterus was returned to the abdomen and peritoneal cavity was cleared of clots and debris. The rectus muscle and peritoneum were repaired with mattress stitch of 2-0 Chromic. The fascia was closed with 0-Vicryl. The subcutaneous layer was closed with plain catgut and the skin was closed with 4-0 Vicryl. The patient tolerated the procedure well. Sponge, lap, and needle counts correct x2 and the patient was taken to recovery in stable condition.
[2020-04-09] MEDS ORDERED: MORPHINE SULFATE 10 MG/ML INJ ONE (01:24)
--- NOTE | 2020-04-09 01:57 | Warning Signs in Babies ---
VOD Warning Signs Datetime Report Generated by [facility]: 04/09/2020 01:57 VOD#[id number] -Warning Signs in Babies: Needs to be viewed. (04/05/2020 13:28:Serenity Marques RN)
--- NOTE | 2020-04-09 02:00 | Warning Signs in Babies ---
VOD Warning Signs Datetime Report Generated by [facility]: 04/09/2020 02:00 VOD#608 -Warning Signs in Babies: Needs to be viewed. (04/09/2020 00:27:Serenity Marques RN)
[2020-04-09] MEDS ORDERED: METHYLERGONOVINE MALEATE INJ/PF 0.2 MG/1 ML AMPULE ONE (02:34)
--- NOTE | 2020-04-09 02:40 | Delivery Summary ---
Del Sum A-C Datetime Report Generated by CPN: 04/09/2020 02:40 DELIVERY PERSONNEL DELIVERY PERSONNEL: [id number] Delivery Doctor:: Ailyn Rangel MD Anesthesiologist:: Dr. Julisa MD SHEET METAL MECHANIC:: B. Sapin, SHEET METAL MECHANIC Labor and Delivery Nurse:: Serenity Marques RN Welfare Interviewer:: Serenity Marques RN Neonatal Nurse Practitioner:: DIANA Randolph Audiovisual Lead Technician/COOKER LOADER: Basil Johnson CST Audiovisual Lead Technician/COOKER LOADER: Nicole Toro, ST MATERNAL INFORMATION Delivery Anesthesia: Spinal Medications After Delivery: Pitocin Bolus-Please Comment; Cytotec 1000mcg Per Rectum/Vagina Meds After Delivery Comment: 2 bags pitocin 30 units in 500 NS Delivery QBL: 400 Maternal Complications: None LABOR SUMMARY EDC: 04/10/2020 00:00 No. Babies in Womb: 1 Attempted: No LABOR INFORMATION Reason for Induction: Not Applicable Onset of Labor: 04/08/2020 21:30 Oxytocin: N/A Group B Beta Strep: positive Antibiotics # of Doses: 0 Name of Antibiotic Given: SEE OR SUMMARY Steroids Given: None Reason Steroids Not Administered: Not Applicable MEMBRANES Membranes Rupture Method: Spontaneous Rupture of Membranes: 04/08/2020 21:30 Length of Rupture (hr): 2.32 Amniotic Fluid Color: Heavy Meconium Amniotic Fluid Amount: Copious STAGES OF LABOR Stage 3 hr: 0 Stage 3 min: 1 Total Time in Labor hr: 2 Total Time in Labor min: 20 VAGINAL DELIVERY Episiotomy: None Laceration #1: None Laceration Extension #1: N/A Laceration Repair: Not Applicable Sponge Count Correct: N/A CSECTION DELIVERY Primary Indication: Repeat Elective Secondary Indication: > 2 Previous CSections CSection Urgency: Non-Scheduled CSection Incidence: Repeat Labor: Labor Elective: Nonelective CSection Incision: Lower Uterine Transverse BABY A INFORMATION Infant Delivery Date/Time: 04/08/2020 23:49 Method of Delivery: Nurse Controlled Delivery: No Born in Route : No : N/A Forceps: N/A Vacuum Extraction: N/A Shoulder Dystocia : No PRESENTATION/POSITION BABY A Presentation: Cephalic Cephalic Presentation: Vertex Breech Presentation: N/A PLACENTA INFORMATION BABY A Placenta Delivery Time : 04/08/2020 23:50 Placenta Method of Delivery: Spontaneous Placenta Status: Delivered SCORES BABY A Heart Rate 1 min: >100 bpm Resp Effort 1 min: Good Cry Muscle Tone 1 min: Active Motion Resuscitation Effort 1 min: Tactile Stimulation Heart Rate 5 min: >100 bpm Resp Effort 5 min: Good Cry Reflex Irritability 5 min: Cough or Sneeze or Pulls Away Muscle Tone 5 min: Active Motion Resuscitation Effort 5 min: Tactile Stimulation INFORMATION BABY A Gestational Age at Delivery: 39.6 Gestational Status: Full Term- 39- 40.6 Weeks Outcome : Liveborn Infant Condition : Stable Infant Sex: Female IDENTIFICATION BABY A Verification Date/Time: 04/09/2020 01:49 ID Band Number: [id number] Mother's Name Verified: Yes RN Verifying : Leroy Eliseo RN/Anahi Seaman RN CORD INFORMATION BABY A No. Cord Vessels: 3 Nuchal Cord : Around Neck x2, Tight Cord Blood Taken: Yes-For Storage (Mom's Blood type +) Suction: Mouth; Nose ASSESSMENT BABY A Infant Complications: Meconium; Polyhydramnios Physical Findings at Delivery: Within Normal Limits Physical Findings- Other: See full nursery shearer helper Respirations: Appears Normal Skin to Skin: Yes Automatic Maintainer/ALS Called : No Care By: Mabel Garcia RN and Mabel Neil CORRECTIONS LIEUTENANT Transferred To: [facility] BABY B INFORMATION : N/A
--- NOTE | 2020-04-09 02:40 | Birth Certificate Data ---
Cert Data Datetime Report Generated by CPN: 04/09/2020 02:40 CERTIFICATE DATA 47a. Care: Yes (04/05/2020 13:28:Serenity Marques RN) 47b. Date of First Visit: 09/05/2019 00:00 (04/05/2020 13:28:Serenity Marques RN) 47c. Date of Last Visit: 04/05/2020 00:00 (04/05/2020 13:28:Serenity Marques RN) 47d. Number of Visits: 14 (04/05/2020 13:28:Serenity Marques RN) 48a. Number of Prev Live Births: 2 (04/05/2020 13:28:Serenity Marques RN) 48b. Now Livin (04/05/2020 13:28:November MAI Javed) 48c. Live Births Now : 0 (04/05/2020 13:28:QS system process) 48d. Date of Last Live : 07/13/2007 00:00 (04/05/2020 13:28:Serenity Marques RN) 48e. Losses: 1 (04/05/2020 13:28:Serenity Ring, RN) RISK FACTORS IN THIS 49a. Diabetes: No (04/05/2020 13:28:Serenity Marques RN) 49b. Hypertension: Yes (04/05/2020 13:28:Serenity Marques RN) Type of Hypertension: Eclampsia (04/05/2020 13:28:Serenity Marques RN) 49c. Previous Births: 1 (04/05/2020 13:28:November MAI Javed) 49d. Stillborns: No (04/05/2020 13:28:Serenity Marques RN) 49d. IUGR: No (04/05/2020 13:28:Serenity Marques RN) 49e. Infertility Treatment: No (04/05/2020 13:28:Serenity Marques RN) 49f. Previous Cesareans: 2 (04/05/2020 13:28:Serenity Marques RN) Mother's Height 50b. Height Inches: 65 (04/05/2020 11:40:QS system process) Mother's Weight 51b. Weight at Delivery (lbs): 229 (04/09/2020 00:33:QS system process) Infections Present/Treated 53a. Gonorrhea: No (04/05/2020 13:28:Serenity Marques RN) Results this Hospital Visit : Negative (04/05/2020 13:28:Serenity Marques RN) 53b. Syphilis: No (04/05/2020 13:28:Serenity Marques RN) 53c. Chlamydia: No (04/05/2020 13:28:Serenity Marques RN) Results this Hospital Visit: Negative (04/05/2020 13:28:Serenity Marques RN) 53d. Hepatitis B: No (04/05/2020 13:28:Serenity Marques RN) Results this Hospital Visit: Negative (04/05/2020 13:28:Serenity Marques RN) 53e. Hepatitis C: Negative (04/05/2020 13:28:Serenity Marques RN) 53h. Mother Tested for HBsAG: Yes (04/05/2020 13:28:Serenity Marques RN) 53i. Date Tested: 09/05/2019 00:00 (04/05/2020 13:28:Serenity Marques RN) 53j. Test Result: Negative (04/05/2020 13:28:Serenity Marques, MAI) Obstetric Procedures 54a, b, c. Obstetric Procedures: Ultrasound; NST (04/05/2020 13:28:Serenity Marques RN) Cigarette Smoking 55a. 3 Months Before Preg - Ci (04/05/2020 13:28:Viji Javed RN) 55a. Packs: 0 (04/05/2020 13:28:Viji Javde RN) 55b. 1st Trimester of Preg- Ci (04/05/2020 13:28:Viji Javed RN) 55b. Packs: 0 (04/05/2020 13:28:Viji Javed RN) 55c. 2nd Trimester of Preg- Ci (04/05/2020 13:28:Viji Javed RN) 55c. Packs: 0 (04/05/2020 13:28:Viji Javed RN) 55d. 3rd Trimester of Preg- Ci (04/05/2020 13:28:Viji Javed RN) 55d. Packs: 0 (04/05/2020 13:28:Viji Javed RN) Onset of Labor 56a. PROM >12 Hrs: 2.32 (04/05/2020 13:28:QS system process) 56b. Precipitous Labor <3 Hrs: 2 (04/05/2020 13:28:QS system process) 56c. Prolonged Labor > 20 Hrs: 2 (04/05/2020 13:28:QS system process) 57a. Induction of Labor: N/A (04/05/2020 13:28:Serenity Marques RN) 57c. Non-Vertex Presentation A: Vertex (04/05/2020 13:28:Serenity Marques RN) 57d. Steroids - Lung Mat: None (04/05/2020 13:28:Serenity Marques RN) 57d. Steroids - Lung Mat: Not Applicable (04/05/2020 13:28:Serenity Marques RN) 57g. Moderate/Heavy Meconium: Heavy Meconium (04/08/2020 21:50:Serenity Ring, RN) 57h. Intolerance of Labor: Repeat Elective (04/05/2020 13:28:Serenity Ring, RN) : > 2 Previous CSections (04/05/2020 13:28:Serenity Ring, RN) Method of Delivery 58a. Forceps - Unsuccessful A: N/A (04/05/2020 13:28:Serenity Ring, RN) 58b. Vacuum - Unsuccessful A: N/A (04/05/2020 13:28:Serenity Ring, RN) 58c. Presentation at 58c. Presentation at - A : Vertex (04/05/2020 13:28:Serenity Ring, RN) 58c. Presentation at - A : N/A (04/05/2020 13:28:Serenity Ring, RN) 58c. Presentation at - A : Cephalic (04/05/2020 13:28:Serenity Ring, RN) Final Route and Method of Del 58d. Baby A Route/Delivery: (04/05/2020 13:28:Serenity Ring, RN) 58e. Trial of Labor Attempted: No (04/05/2020 13:28:Serenity Ring, RN) 58e. Trial of Labor Attempted A: N/A (04/05/2020 13:28:Serenity Ring, RN) 58e. Trial of Labor Attempted B: N/A (04/05/2020 13:28:Serenity Ring, RN) Maternal Morbidity 59b. 3rd or 4th Degree Lacs: None (04/05/2020 13:28:Serenity Ring, RN) 61. GA at Delivery Baby A: 39.6 (04/05/2020 13:28:Serenity Marques RN) : Full Term- 39- 40.6 Weeks (04/05/2020 13:28:QS system process)
[2020-04-09] MEDS: RINGERS SOLUTION,LACTATED 1,000 ML IV PRN ×2 (03:24→10:36)
[2020-04-09] MEDS: KETOROLAC TROMETHAMINE INJ/PF 30 MG/1 ML SDV IV SCH ×2 (05:58→14:11)
[2020-04-09] MEDS: IBUPROFEN 800 MG TABLET PO SCH ×3 (07:56→20:17)
[2020-04-09] MEDS: DOCUSATE SODIUM 100 MG CAPSULE PO SCH ×2 (10:31→17:30)
[2020-04-09] MEDS: PRENATAL VITAMIN W DHA CAPSULE PO SCH (10:32)
--- NOTE | 2020-04-09 11:34 | PDOC PROGRESS REPORT ---
Subjective-OB Progress Note for:: 04/09/20 - POD #1, s/p Repeat just before midnight. A+, Rubella immune, Physical Exam (OB) Vital Signs: Temp Pulse Resp BP Pulse Ox 98.2 F 78 18 106/63 100 04/09/20 07:03 04/09/20 07:03 04/09/20 07:03 04/09/20 07:03 04/09/20 07:03 Intake & Output 04/08/20 04/09/20 04/10/20 06:59 06:59 06:59 Intake Total 900 Balance 900 - General General Appearance: Appears well, Alert In distress: None - PIH/Pre-Eclampsia DTR's: 2 + Clonus: Negative Headache: Absent Epigastric Pain: No Visual Changes: No - Dressing Removed: No Incision: Draining, Well Approximated Closure Type: Opsite - Maternal Morbidity 59. Maternal Morbidity (serious complications experinced by the mother associated with labor and delivery: None of the above - Lochia Lochia Amount: Scant < 10 ml Lochia Color: Rubra/Red - Abdomen Description: Tender, Soft Hernia Present: No Fundal Description: Firm, Non-Midline Describe if Not Midline: left deviation Fundal Height: u/3 - u/4 > 4/u*- Describe: fundus, firm, 3 above U, deviated to left - Respiratory Respiratory Status: No respiratory distress - Cardiovascular Rhythm: Regular - Abdominal Inspection: Normal Distension: No distension Tenderness: Nontender Abdominal Notes: +BS - Genitourinary Genitourinary Note: singh cath, dark dino urine - Extremities Upper extremity: Normal inspection Lower extremities: Normal inspection - Psychological Associated symptoms: Normal affect, Normal mood - Skin Skin Temperature: Warm Skin Moisture: Dry Objective-Diagnostic Laboratory: 04/05/20 14:22 Assessment and Plan(PN) Plan:: increase PO fluids, Routine PP orders, Post op orders - Time Spent with Patient Time with patient: Less than 15 minutes Medications reviewed and adjusted accordingly: Yes - Disposition Anticipated Discharge Disposition: Home, Self Care Anticipated Discharge Timeframe: within 48 hours
[2020-04-09] MEDS: SIMETHICONE 80 MG TAB.CHEW PO PRN ×2 (14:10→21:59)
[2020-04-10] MEDS: KETOROLAC TROMETHAMINE INJ/PF 30 MG/1 ML SDV IV SCH ×2 (03:29→12:35)
[2020-04-10] MEDS: IBUPROFEN 800 MG TABLET PO SCH ×4 (03:52→20:32)
[2020-04-10 07:15] LABS: HEMATOCRIT 20.9 % (36.0-47.0); MEAN CORPUSCULAR HEMOGLOBIN 28.5 pg (27.0-33.4); MEAN CORPUSCULAR HGB CONC 33.2 g/dL (32.0-36.0); MEAN CORPUSCULAR VOLUME 86 fl (80-97); PLATELET COUNT 156 10^3/uL (150-450); RED BLOOD COUNT 2.43 10^6/uL (3.72-5.28); RED CELL DISTRIBUTION WIDTH 14.4 % (11.5-14.0); WHITE BLOOD COUNT 9.2 10^3/uL (4.0-10.5)
[2020-04-10 07:20] LABS: HEMOGLOBIN 6.9 g/dL (12.0-15.5)
[2020-04-10] MEDS: PRENATAL VITAMIN W DHA CAPSULE PO SCH (09:04)
[2020-04-10] MEDS: DOCUSATE SODIUM 100 MG CAPSULE PO SCH ×2 (09:06→18:14)
[2020-04-10] MEDS ORDERED: FERRIC CARBOXYMALTOSE INJ 750 MG/15 ML VIAL IV ONE (10:40)
[2020-04-10] MEDS ORDERED: FERRIC CARBOXYMALTOSE 750 MG in NORMAL SALINE 250 ML IV ONE ×2 (12:00→14:00)
[2020-04-10] MEDS: SIMETHICONE 80 MG TAB.CHEW PO PRN (14:43)
--- NOTE | 2020-04-10 14:45 | PDOC PROGRESS REPORT ---
Subjective-OB Progress Note for:: 04/10/20 Subjective: reports bleeding slowing, pain controlled with current meds. denies needs Physical Exam (OB) Vital Signs: Temp Pulse Resp BP Pulse Ox 98.2 F 98 17 119/66 99 04/10/20 12:17 04/10/20 12:17 04/10/20 12:17 04/10/20 12:17 04/10/20 12:17 Intake & Output 04/09/20 04/10/20 04/11/20 06:59 06:59 06:59 Intake Total 900 500 Output Total 775 Balance 125 500 - Dressing Removed: No Incision: Well Approximated Closure Type: opsite - Maternal Morbidity 59. Maternal Morbidity (serious complications experinced by the mother associated with labor and delivery: None of the above - Abdomen Description: Tender, Soft, Round Hernia Present: No Fundal Description: Firm, Midline Describe if Not Midline: left deviation Fundal Height: u/u - u/2 > 4/u*- Describe: fundus, firm, 3 above U, deviated to left - Abdominal Distension: No distension - Extremities Lower extremities: Brigitte's sign - neg Calf: Normal, Nontender Objective-Diagnostic Laboratory: 04/10/20 06:44 04/10/20 06:44 WBC 9.2 RBC 2.43 L Hgb 6.9 L D Hct 20.9 L MCV 86 MCH 28.5 MCHC 33.2 RDW 14.4 H Plt Count 156 Assessment and Plan(PN) - Assessment and Plan (1) S/P repeat low transverse Is this a current diagnosis for this admission?: Yes - Time Spent with Patient Time with patient: Less than 15 minutes Medications reviewed and adjusted accordingly: Yes - Disposition Anticipated Discharge Disposition: Home, Self Care Anticipated Discharge Timeframe: within 24 hours
[2020-04-11] MEDS: IBUPROFEN 800 MG TABLET PO SCH ×3 (02:24→16:03)
[2020-04-11 05:42] LABS: ABSOLUTE EOSINOPHILS # (AUTO) 0.2 10^3/uL (0.0-0.6); ABSOLUTE LYMPHOCYTES (AUTO) 1.4 10^3/uL (0.5-4.7); ABSOLUTE MONOCYTES (AUTO) 0.8 10^3/uL (0.1-1.4); ABSOLUTE NEUT (AUTO) 5.1 10^3/uL (1.7-8.2); BASOPHILS % (AUTO) 0.5 % (0-2); EOSINOPHILS % (AUTO) 2.5 % (0-6); HEMATOCRIT 19.1 % (36.0-47.0); LYMPHOCYTES % (AUTO) 18.2 % (13-45); MEAN CORPUSCULAR HEMOGLOBIN 28.6 pg (27.0-33.4); MEAN CORPUSCULAR HGB CONC 33.3 g/dL (32.0-36.0); MEAN CORPUSCULAR VOLUME 86 fl (80-97); MONOCYTES % (AUTO) 11.3 % (3-13); PLATELET COUNT 173 10^3/uL (150-450); RED BLOOD COUNT 2.23 10^6/uL (3.72-5.28); RED CELL DISTRIBUTION WIDTH 14.4 % (11.5-14.0); SEGMENTED NEUTROPHILS % (AUTO) 67.5 % (42-78); TOTAL CELLS COUNTED % (AUTO) 100 %; WHITE BLOOD COUNT 7.5 10^3/uL (4.0-10.5)
[2020-04-11 05:46] LABS: HEMOGLOBIN 6.4 g/dL (12.0-15.5)
[2020-04-11] MEDS ORDERED: NORMAL SALINE 250 ML IV PRN ×2 (07:03)
--- NOTE | 2020-04-11 12:09 | PDOC DISCHARGE SUMMARY ---
Impression - Admit/DC Date/PCP Admission Date/Primary Care Provider: 04/08/20 21:45 LAURA WILKERSON MD Discharge Date: 04/11/20 - will continue to monitor and discharge this afternoon per Dr. Canales as long as she's stable after tranfusion - Discharge Diagnosis (1) Blood transfusion during current hospitalization Is this a current diagnosis for this admission?: Yes (2) Acute blood loss anemia Is this a current diagnosis for this admission?: Yes (3) S/P repeat low transverse Is this a current diagnosis for this admission?: Yes - Assessment Summary: 40yo G5 now P3 s/p repeat ppd2 stable and ready for discharge. Understands warning s/s and when to rtc/[facility], also understands that we will continue to monitor and discharge this afternoon per Dr. Canales as long as she's stable after tranfusion - Additional Information Resuscitation Status: Full Code Discharge Diet: As Tolerated, Regular Discharge Activity: Activity As Tolerated, Balance Activity w/Rest, No Driving, No Lifting Over 10 Pounds, Pelvic Rest, No tub bath Referrals: LAURA WILKERSON MD [Primary Care Provider] - Prescriptions: Oxycodone HCl/Acetaminophen [Percocet 5-325 mg Tablet] 1 tab PO Q4HP PRN #20 tablet PRN Reason: For Pain Scale 3-5 Ibuprofen [Motrin 800 mg Tablet] 800 mg PO Q8HP PRN #30 tablet PRN Reason: For Pain Scale 1-3 Docusate Sodium [Colace 100 mg Capsule] 100 mg PO BID #60 capsule Ferrous Sulfate [Feosol 325 mg Tablet] 325 mg PO BID #60 tablet Home Medications: Magnesium 30 mg PO BID 04/05/20 [place]-3S/Dha/Epa/Fish Oil [Fish Oil 1,200 mg Softgel] 1 each PO DAILY 04/05/20 Vits96/Iron Fum/Folic [ Tablet] 1 each PO DAILY 04/05/20 Docusate Sodium [Colace 100 mg Capsule] 100 mg PO BID #60 capsule 04/11/20 Ferrous Sulfate [Feosol 325 mg Tablet] 325 mg PO BID #60 tablet 04/11/20 Ibuprofen [Motrin 800 mg Tablet] 800 mg PO Q8HP PRN #30 tablet 04/11/20 Oxycodone HCl/Acetaminophen [Percocet 5-325 mg Tablet] 1 tab PO Q4HP PRN #20 tablet 04/11/20 Hospital Course 59. Maternal Morbidity (serious complications experinced by the mother associated with labor and delivery: None of the above Results Laboratory Results: WBC 7.5 10^3/uL (4.0-10.5) 04/11/20 05:25 RBC 2.23 10^6/uL (3.72-5.28) L 04/11/20 05:25 Hgb 6.4 g/dL (12.0-15.5) L 04/11/20 05:25 Hct 19.1 % (36.0-47.0) L 04/11/20 05:25 MCV 86 fl (80-97) 04/11/20 05:25 MCH 28.6 pg (27.0-33.4) 04/11/20 05:25 MCHC 33.3 g/dL (32.0-36.0) 04/11/20 05:25 RDW 14.4 % (11.5-14.0) H 04/11/20 05:25 Plt Count 173 10^3/uL (150-450) 04/11/20 05:25 Lymph % (Auto) 18.2 % (13-45) 04/11/20 05:25 [place] % (Auto) 11.3 % (3-13) 04/11/20 05:25 Eos % (Auto) 2.5 % (0-6) 04/11/20 05:25 Baso % (Auto) 0.5 % (0-2) 04/11/20 05:25 Absolute Neuts (auto) 5.1 10^3/uL (1.7-8.2) 04/11/20 05:25 Absolute Lymphs (auto) 1.4 10^3/uL (0.5-4.7) 04/11/20 05:25 Absolute Monos (auto) 0.8 10^3/uL (0.1-1.4) 04/11/20 05:25 Absolute Eos (auto) 0.2 10^3/uL (0.0-0.6) 04/11/20 05:25 Absolute Basos (auto) 0.0 10^3/uL (0.0-0.2) 04/11/20 05:25 Seg Neutrophils % 67.5 % (42-78) 04/11/20 05:25 RPR NONREACTIVE (NONREACTIVE) 04/08/20 22:04 COVID-19 Source NASOPHARYNGEAL 04/05/20 14:20 COVID-19 (GABY) NOT DETECTED 04/05/20 14:20 Blood Type A POSITIVE 04/08/20 22:04 Blood Type Confirm A POSITIVE 04/08/20 22:04 Antibody Screen NEGATIVE 04/08/20 22:04 Crossmatch See Detail 04/08/20 22:04
[2020-04-11 16:30] VITALS: BP 144/80
[2020-04-11 18:59] LABS: ABSOLUTE BASOPHILS # (AUTO) 0.1 10^3/uL (0.0-0.2); ABSOLUTE EOSINOPHILS # (AUTO) 0.3 10^3/uL (0.0-0.6); ABSOLUTE LYMPHOCYTES (AUTO) 1.2 10^3/uL (0.5-4.7); ABSOLUTE MONOCYTES (AUTO) 0.9 10^3/uL (0.1-1.4); ABSOLUTE NEUT (AUTO) 7.6 10^3/uL (1.7-8.2); BASOPHILS % (AUTO) 0.7 % (0-2); EOSINOPHILS % (AUTO) 2.8 % (0-6); HEMATOCRIT 29.4 % (36.0-47.0); LYMPHOCYTES % (AUTO) 12.1 % (13-45); MEAN CORPUSCULAR HEMOGLOBIN 29.7 pg (27.0-33.4); MEAN CORPUSCULAR HGB CONC 33.7 g/dL (32.0-36.0); MEAN CORPUSCULAR VOLUME 88 fl (80-97); MONOCYTES % (AUTO) 8.8 % (3-13); PLATELET COUNT 198 10^3/uL (150-450); RED BLOOD COUNT 3.34 10^6/uL (3.72-5.28); RED CELL DISTRIBUTION WIDTH 14.5 % (11.5-14.0); SEGMENTED NEUTROPHILS % (AUTO) 75.6 % (42-78); TOTAL CELLS COUNTED % (AUTO) 100 %; WHITE BLOOD COUNT 10.1 10^3/uL (4.0-10.5)
[2020-04-11 19:00] LABS: HEMOGLOBIN 9.9 g/dL (12.0-15.5)
== END 2020-04-11 20:30 | disposition home or self-care (01) | DRG 787 ==
LOC: LR 21:45 → UNDOADMIN 22:05 → 2S 04-09 02:44
PROVIDERS: ADMIT Obstetrics & Gynecology; ATTEND Obstetrics & Gynecology
PROC: 10D00Z1 Extraction of Products of Conception, Low, Open Approach (ICD-10-PCS; principal; 2020-04-08)
PROC: 30233N1 Transfusion of Nonautologous Red Blood Cells into Peripheral Vein, Percutaneous Approach (ICD-10-PCS; 2020-04-11)
DX: O34.211 Maternal care for low transverse scar from previous cesarean delivery (principal); D62 Acute posthemorrhagic anemia; O40.3XX0 Polyhydramnios, third trimester, not applicable or unspecified; N85.8 Other specified noninflammatory disorders of uterus; O90.81 Anemia of the puerperium; O77.0 Labor and delivery complicated by meconium in amniotic fluid; O99.824 Streptococcus B carrier state complicating childbirth; O69.1XX0 Labor and delivery complicated by cord around neck, with compression, not applicable or unspecified; Z3A.39 39 weeks gestation of pregnancy; Z37.0 Single live birth; Z11.59 Encounter for screening for other viral diseases
CPT/HCPCS: 1961; 36415; 36430; 85025; 85027; 86592; 86850; 86900; 86901; 86920; 87635; 94799; 99140; C9803; J0131; J1439; J1885; J2175; J2210; J2270; J2405; J2550; J2590; J3010; J3490; J7050; J7120; P9016